=== PATIENT | female | born 1985 | race African-American/Black ===

== ENCOUNTER → 2020-07-04 10:59 | Outpatient (BNVA) | payer BC, SELFPAY | PROVIDERS: PCP Internal Medicine; Visit Provider Surgery ==

== ENCOUNTER 2020-07-18 13:38 | Outpatient (REF) | payer BC, SELFPAY ==
[2020-07-18 12:48] VITALS: BP 121/59; PULSE 88; RESP 19; TEMP 36.8; O2SAT 97; BMI 40.7
--- NOTE | 2020-07-18 15:37 | W.PM.OPN ---
Operative Note Operative Note Date of Service: 07/18/20 Narrative: Preoperative diagnosis: Skin cyst right axilla, dermal fibroma left anterior thigh Postoperative diagnosis: Same Procedure: Excision of skin cyst right axilla, excision of dermal fibroma left anterior thigh Surgeon: Mikey Faulkner MD Facility Environmental Technician: None Anesthesia: Local Indications for procedure: 34-year-old female presenting with a previously infected cyst in the right axilla. The lesion is now decreased in size in the patient has requested excision to prevent recurrent infection. She also has a long history of a hard lesion in the left thigh which she feels has gradually increased in size. She has requested excision. Operative findings: 0.5 cm epidermal inclusion cyst in the right axilla. 1 cm by 0.5 cm dermal fibrotic lesion in the left anterior thigh. Specimen: Epidermal inclusion cyst right axilla, fibroma left anterior thigh Estimated blood loss: 2 mL Complications: None Procedure details: Patient was brought to the minor surgery suite placed in a supine position. Beginning at the right axilla patient confirmed the site of the procedure. Informed consent was confirmed as well. The skin was prepped with Betadine in the right axilla and draped in a sterile fashion. Local anesthesia consisting of 1% lidocaine with epinephrine was then infiltrated around the lesion. An elliptical incision was then created with a scalpel and carried out through subcutaneous tissue. The lesion was excised and sent to pathology for further examination. Skin was closed using interrupted 4 0 nylon sutures. Sterile dressings were then applied. Attention was then directed to the left anterior thigh. Again the patient confirmed the site of surgery. The skin was then prepped with Betadine and draped in sterile fashion. Local anesthesia was then infiltrated around the lesion. An elliptical incision was again created around this lesion carried out through subcutaneous tissue. The lesion was completely excised and sent to pathology for further examination. Skin was then closed using interrupted 4 0 nylon sutures. Sterile dressings were then applied. The patient tolerated the procedure well. She was discharged to home in stable condition.
== END 2020-07-18 13:39 | disposition home or self-care (01) ==
LOC: HO.MS 13:38
PROVIDERS: PCP Internal Medicine; Visit Provider Surgery
PROC: (CPT 11400; principal; 2020-07-18 14:00)
DX: L72.0 Epidermal cyst (principal); D23.72 Other benign neoplasm of skin of left lower limb, including hip
CPT/HCPCS: 11400; 11401; 88304; 88305; 88312

== ENCOUNTER → 2020-07-25 10:20 | Outpatient (BNVA) | payer BC, SELFPAY | PROVIDERS: PCP Internal Medicine; Visit Provider Surgery ==